=== PATIENT | female | born 1990 | race Hispanic/Latino ===

== ENCOUNTER 2020-12-08 15:33 | Emergency (ER) | payer MEDICAID ==
[2020-12-08 20:11] VITALS: BP 162/103
== END 2020-12-08 19:50 | disposition home or self-care (01) ==
LOC: ED 15:33
DX: J45.909 Unspecified asthma, uncomplicated (principal); I10 Essential (primary) hypertension; Z98.890 Other specified postprocedural states; Z79.899 Other long term (current) drug therapy
CPT/HCPCS: 94640; 99282